=== PATIENT | female | born 1960 | race Caucasian/White ===

== ENCOUNTER 2020-01-24 10:26 | Emergency (ER) | payer BC ==
[~2020-01-24] VITALS: Ht 160 cm; Wt 72.7 kg
[2020-01-24 11:17] LABS: BASOPHILS # (AUTO) 0.1 X10'3 (0-0.2); BASOPHILS % (AUTO) 1.1 % (0-1); EOSINOPHILS # (AUTO) 0.1 X10'3 (0-0.9); EOSINOPHILS % (AUTO) 0.8 % (0-6); HEMATOCRIT 47.9 % (35.0-45.0); HEMOGLOBIN 16.2 g/dl (12.0-16.0); LYMPHOCYTES # (AUTO) 2.1 X10'3 (1.1-4.8); LYMPHOCYTES % (AUTO) 28.4 % (21-51); MEAN CORPUSCULAR HEMOGLOBIN 33.7 PG (27.0-31.0); MEAN CORPUSCULAR HGB CONC 33.8 g/dL (33.0-36.5); MEAN CORPUSCULAR VOLUME 99.7 FL (78-98); MEAN PLATELET VOLUME 7.3 FL (7.4-10.4); MONOCYTES # (AUTO) 0.6 X10'3 (0-0.9); MONOCYTES % (AUTO) 7.7 % (2-12); NEUTROPHILS # (AUTO) 4.7 X10'3 (1.8-7.7); PLATELET COUNT 357 X10'3 (140-440); RED BLOOD COUNT 4.81 X10'6 (4.20-5.60); RED CELL DISTRIBUTION WIDTH 13.1 % (11.5-14.5); WHITE BLOOD COUNT 7.5 X10'3 (4.5-11.0)
[2020-01-24] MEDS ORDERED: morphine 4 MG/ML inj SYRINge IV ONE (11:25)
[2020-01-24] MEDS ORDERED: ondansetron/PF 4mg/2ml inj IV ONE (11:25)
[2020-01-24] MEDS ORDERED: normal saline 1000ml 1,000 ML IV ONE (11:25)
[2020-01-24 11:29] LABS: ALANINE AMINOTRANSFERASE 54 U/L (12-78); ALBUMIN 3.9 G/DL (3.4-5.0); ALBUMIN/GLOBULIN RATIO 1.2 (1.1-1.5); ALKALINE PHOSPHATASE 97 IU/L (46-116); ANION GAP 11 (8-16); ASPARTATE AMINO TRANSFERASE 29 U/L (10-37); BILIRUBIN,TOTAL 0.6 MG/DL (0.1-1.0); BLOOD UREA NITROGEN 8 MG/DL (7-18); BUN/CREATININE RATIO 8.2 (6.6-38.0); CHLORIDE 106 MMOL/L (99-107); CREATININE 0.97 MG/DL (0.40-0.90); GLUCOSE 118 MG/DL (70-104); LIPASE 100 U/L (73-393); POTASSIUM 3.8 MMOL/L (3.5-5.1); SODIUM 141 MMOL/L (135-145); TOTAL CARBON DIOXIDE 23.8 MMOL/L (24-32); TOTAL PROTEIN 7.2 G/DL (6.4-8.2); eGFR 59 ML/MIN
[2020-01-24 11:57] LABS: CLARITY,URINE SLIGHTLY CLOUDY (Clear); COLOR,URINE YELLOW (Yellow); GLUCOSE, URINE NEGATIVE (Neg); KETONES,URINE NEGATIVE (Neg); LEUKOCYTE ESTERASE ,URINE NEGATIVE (Neg); NITRITES, URINE NEGATIVE (Neg); OCCULT BLOOD,URINE SMALL (Neg); PROTEIN,URINE NEGATIVE (Neg); UROBILINOGEN,URINE 0.2 E.U/dL (0.2-1.0)
[2020-01-24 12:03] LABS: URINE HCG NEGATIVE (NEG)
[2020-01-24 12:05] LABS: UA COLLECTION TYPE NON-SPECIFIED
[2020-01-24 12:06] LABS: BACTERIA,URINE FEW /HPF (Neg); MUCUS STRANDS MODERATE /LPF (Neg); SQUAMOUS EPITHELIAL CELL,UR MODERATE /LPF (FEW)
[2020-01-24 12:07] LABS: RBC,URINE 0-2 /HPF (0-2); WBC,URINE 0-4 /HPF (0-4)
[2020-01-24] MEDS ORDERED: ketorolac trometh. 30mg/ml inj. IV ONE (12:30)
[2020-01-24] MEDS ORDERED: metoclopramide 5 mg/ml inj IV ONE (12:30)
[2020-01-24] MEDS ORDERED: pantoprazole 40 MG vial IV ONE (12:35)
[2020-01-24] MEDS ORDERED: famotidine/PF 10 mg/ml inj IV ONE (12:35)
[2020-01-24] MEDS ORDERED: ONDA8TAB6 PO (13:20)
[2020-01-24] MEDS ORDERED: HYDR-3965 PO (13:20)
[2020-01-24] MEDS ORDERED: LIDO700A32 TOP (13:20)
[2020-01-24] MEDS ORDERED: PANT-47 PO (13:20)
[2020-01-24 13:38] VITALS: BP 142/91
== END 2020-01-24 13:38 | disposition home or self-care (01) ==
LOC: ER 10:27
DX: R07.81 Pleurodynia (principal); K52.89 Other specified noninfective gastroenteritis and colitis; R53.83 Other fatigue; R10.9 Unspecified abdominal pain; Z60.2 Problems related to living alone; Z88.2 Allergy status to sulfonamides; Z79.899 Other long term (current) drug therapy
CPT/HCPCS: 36415; 71046; 80053; 81001; 81025; 83690; 84484; 85025; 96361; 96374; 96375; 99284; C9113; J1885; J2270; J2405; J2765; J3490; J7030

== ENCOUNTER 2021-09-06 11:03 | Emergency (ER) | payer BC ==
[~2021-09-06] VITALS: Ht 160 cm; Wt 63.0 kg
[~2021-09-06 11:03] MED LIST: LIDO700A32 TOP; ONDA8TAB6 PO; PANT-47 PO
[2021-09-06 14:16] VITALS: BP 186/106
== END 2021-09-06 14:18 | disposition home or self-care (01) ==
LOC: ER 11:04
DX: I10 Essential (primary) hypertension (principal); R07.89 Other chest pain; R11.0 Nausea; K21.9 Gastro-esophageal reflux disease without esophagitis; Z60.2 Problems related to living alone; Z88.2 Allergy status to sulfonamides; Z79.899 Other long term (current) drug therapy
CPT/HCPCS: 71045; 93005; 99284